=== PATIENT | male | born 1975 | race African-American/Black ===

== ENCOUNTER 2017-02-22 21:10 | Emergency (ER) | payer OTHER ==
[2017-02-22 21:45] VITALS: BP 137/76; PULSE 140; TEMP 98; BMI 28.0
--- NOTE | 2017-02-22 23:33 | PDOC ---
History of Present Illness - General History Source: Patient Exam Limitations: No Limitations - History of Present Illness Initial Comments: 02/23/17 01:54 EST The patient is a 41-year-old male, with a significant past medical history of chronic neck pain, who presents to the ED with 2 days of exacerbation of his chronic neck pain. The pt has a longstanding hx of neck pain for which he takes oxycodone 20 mg. The patient was traveling and recently ran out of his medication. He denies any nausea or vomiting. He adamantly denies using other substances. He reports drinking 6-8 drinks a day on the weekends.The patients last drink was 5 days ago. <Melinda Rae - Last Filed: 02/23/17 01:54 EST> <Charlene Delgado - Last Filed: 02/23/17 02:10> - General Chief Complaint: Chronic pain Stated Complaint: BACK/NECK PAIN Time Seen by Provider: 02/22/17 23:33 Past History <Melinda Rae - Last Filed: 02/23/17 01:54 EST> - Past Medical History COPD: No - Suicide/Smoking/Psychosocial Hx Smoking History: Never smoked <Charlene Delgado - Last Filed: 02/23/17 02:10> - Past Medical History Allergies/Adverse Reactions: Allergies Allergy/AdvReac Type Severity Reaction Status Date / Time No Known Allergies Allergy Verified 02/22/17 21:45 Review of Systems - Review of Systems Able to Perform ROS?: Yes Comments:: 02/23/17 01:54 EST GENERAL/CONSTITUTIONAL: No fever or chills. No weakness. HEAD, EYES, EARS, NOSE AND THROAT: No change in vision. No ear pain or discharge. No sore throat. CARDIOVASCULAR: No chest pain or shortness of breath. RESPIRATORY: No cough, wheezing, or hemoptysis. GASTROINTESTINAL: No nausea, vomiting, diarrhea or constipation. GENITOURINARY: No dysuria, frequency, or change in urination. MUSCULOSKELETAL: No joint or muscle swelling or pain. No neck or back pain. SKIN: No rash NEUROLOGIC: No headache, vertigo, loss of consciousness, or change in strength/ sensation. ENDOCRINE: No increased thirst. No abnormal weight change. HEMATOLOGIC/LYMPHATIC: No anemia, easy bleeding, or history of blood clots. ALLERGIC/IMMUNOLOGIC: No hives or skin allergy. <Melnida Rae - Last Filed: 02/23/17 01:54 EST> *Physical Exam - Vital Signs Last Vital Signs Temp Pulse Resp BP Pulse Ox 98 F 140 H 20 137/76 100 02/22/17 21:41 02/22/17 21:41 02/22/17 21:41 02/22/17 21:41 02/22/17 21:41 - Physical Exam Comments: 02/23/17 01:55 EST GENERAL: Awake, alert, and fully oriented, in no acute distress HEAD: No signs of trauma EYES: PERRLA, EOMI, sclera anicteric, conjunctiva clear ENT: Auricles normal inspection, hearing grossly normal, nares patent, oropharynx clear without exudates. Moist mucosa NECK: Normal ROM, supple, no lymphadenopathy, JVD, or masses LUNGS: Breath sounds equal, clear to auscultation bilaterally. No wheezes, and no crackles HEART: (+)Tachycardic. Normal S1 and S2, no murmurs, rubs or gallops ABDOMEN: Soft, nontender, normoactive bowel sounds. No guarding, no rebound. No masses EXTREMITIES: Normal range of motion, no edema. No clubbing or cyanosis. No cords, erythema, or tenderness NEUROLOGICAL: No tremors. No hyperventilation. Alert and oriented x3. SKIN: Warm, Dry, normal turgor, no rashes or lesions noted <Melinda Rae - Last Filed: 02/23/17 01:54 EST> - Vital Signs Last Vital Signs Temp Pulse Resp BP Pulse Ox 98 F 140 H 20 137/76 100 02/22/17 21:41 02/22/17 21:41 02/22/17 21:41 02/22/17 21:41 02/22/17 21:41 <Charlene Delgado - Last Filed: 02/23/17 02:10> ED Treatment Course - LABORATORY CBC & Chemistry Diagram: 02/23/17 00:00 02/23/17 00:00 - ADDITIONAL ORDERS Additional order review: Laboratory Results 02/23/17 00:00 Sodium 142 Potassium 3.8 Chloride 106 Carbon Dioxide 26 Anion Gap 10 BUN 11 Creatinine 1.2 Creat Clearance w eGFR > 60 Random Glucose 177 H Calcium 8.6 Total Bilirubin 0.4 AST 15 ALT 28 Alkaline Phosphatase 83 Total Protein 7.1 Albumin 3.6 02/23/17 00:00 RBC 4.51 MCV 90.5 MCHC 33.7 RDW 15.7 MPV 7.9 Neutrophils % No Result Required. Lymphocytes % No Result Required. - Medications Given in the ED: ED Medications Discontinued Medications Generic Name Dose Route Start Last Admin Trade Name Patti PRN Reason Stop Dose Admin Chlordiazepoxide HCl 25 mg 02/23/17 00:41 02/23/17 01:04 EDT Librium - PO 02/23/17 00:42 25 mg ONCE ONE Administration Oxycodone/Acetaminophen 2 combo 02/22/17 23:33 02/22/17 23:58 Percocet 5/325 - PO 02/22/17 23:34 2 combo ONCE ONE Administration Sodium Chloride 1,000 ml 02/23/17 01:19 EST 02/23/17 01:51 EDT Normal Saline - IV 02/23/17 01:20 EST 1,000 ml ONCE ONE Administration <Melinda Rae - Last Filed: 02/23/17 01:54 EST> - LABORATORY CBC & Chemistry Diagram: 02/23/17 00:00 02/23/17 00:00 <Charlene Delgado - Last Filed: 02/23/17 02:10> Medical Decision Making - Medical Decision Making 02/23/17 01:48 EST Pt presents to the ED complaining of acute exacerbation of his chronic neck pain. Denies new complaints, however, he was found to be extremely anxious, and his heart rate was 140 in triage. Denies chest pain or shortness of breath- -no symptoms suggestive of PE. Also denies history of benzo abuse, no tremor or tongue fasiculations on exam--still may be mild ETOH withdrawal--patient does report a binge drinking history. HR improving after librium. EKG now sinus tach with rate in 110's. Labs show elevated WBC count with mild bandemia , although patient has no systemic signs of infection. CXR shows no evidence of PNA. Will give IV hydration, check UA and reassess. 02/23/17 02:07 Patient feels improved and is asking to go home. Now reports to me that he was having cold sweats before this episode started. Tachycardia may have been secondary to fever. Patient still reports no other signs or symptoms of serious infection. Will discharge home. HR is now 106. <Charlene Delgado - Last Filed: 02/23/17 02:10> *DC/Admit/Observation/Transfer - Attestations Scribe Attestion: 02/23/17 01:59 EST Documentation prepared by Melinda Rae, acting as medical aide for Charlene Delgado MD. <Melinda Rae - Last Filed: 02/23/17 01:54 EST> - Discharge Dispostion Admit: No <Charlene Delgado - Last Filed: 02/23/17 02:10> Diagnosis at time of Disposition: Tachycardia - Discharge Dispostion Disposition: HOME Condition at time of disposition: Good - Patient Instructions Printed Discharge Instructions: DI for Tachycardia Additional Instructions: return immediately to the Ed for chest pain, shortness of breath, abdominal pain , nausea or vomiting, other new or worsening symptoms. Follow up with your doctor on Friday.
[2017-02-23 00:04] LABS: MCH 30.5 pg (25.7-33.7); MCHC 33.7 g/dl (32.0-35.9); MEAN CELL VOLUME 90.5 fl (80-96); MEAN PLT VOLUME 7.9 fl (7.5-11.1); PLATELET COUNT 310 K/MM3 (134-434); RDW 15.7 % (11.9-15.9); WHITE BLOOD COUNT 20.2 K/mm3 (4.0-10.0)
[2017-02-23 00:25] LABS: ALBUMIN 3.6 g/dl (3.4-5.0); ANION GAP 10 (8-16); BILIRUBIN,TOTAL 0.4 mg/dL (0.2-1.0); CALCIUM 8.6 mg/dL (8.5-10.1); CO2 26 mmol/L (21-32); CREATININE 1.2 mg/dL (0.7-1.3); GLUCOSE,RANDOM 177 mg/dL (74-106); SGOT/AST 15 U/L (15-37); SGPT/ALT 28 U/L (12-78); TOT PROT 7.1 g/dl (6.4-8.2)
[2017-02-23 00:26] LABS: ALK PHOS 83 U/L (45-117)
[2017-02-23] MEDS ORDERED: chlordiazePOXIDE HCL 25 MG CAPSULE PO ONE (00:41)
[2017-02-23 00:51] LABS: PLATELET COMMENT2 NO CLOTTING DETECTED; PLATELET ESTIMATE ADEQUATE (NORMAL); TOTAL CELLS COUNTED 100
[2017-02-23] MEDS ORDERED: chlordiazePOXIDE HCL 25 MG CAPSULE ONE (01:03)
[2017-02-23] MEDS ORDERED: SODIUM CHLORIDE 0.9% 1000 ML INFUS.BAG IV ONE (01:19)
[2017-02-23] MEDS: NAPROXEN 500 MG TABLET (FP) PO ONE ×2 (02:22→02:51)
[2017-02-23] MEDS ORDERED: NAPROXEN 500 MG TABLET (FP) ONE (02:49)
--- NOTE | 2017-02-26 14:04 | EKG ---
Test Reason : Blood Pressure : / mmHG Vent. Rate : 113 BPM Atrial Rate : 113 BPM P-R Int : 130 ms QRS Dur : 086 ms QT Int : 322 ms P-R-T Axes : 057 050 040 degrees QTc Int : 441 ms SINUS TACHYCARDIA POSSIBLE LEFT ATRIAL ENLARGEMENT BORDERLINE ECG NO PREVIOUS ECGS AVAILABLE Confirmed by ADELFO DELONG MD ([id number]) on 02/26/2017 2:03:58 PM Referred By: Confirmed By:ADELFO DELONG MD
== END 2017-02-23 02:33 | disposition home or self-care (01) ==
LOC: JER 21:10
DX: R00.0 Tachycardia, unspecified (principal)
CPT/HCPCS: 36415; 71020-TC; 80053; 85025; 93005; 93010; 99283-25